=== PATIENT | male | born 1960 | race Asian ===

== ENCOUNTER 2020-03-02 19:43 | Emergency (ER) | payer OTHER ==
[~2020-03-02] VITALS: Ht 172.7 cm; Wt 85.3 kg
[2020-03-02 19:43] VITALS: BP 153/85; TEMP 98.9
[~2020-03-02 19:43] MED LIST: ACID CONTROL20 MG PO; ALBU0.0813 INH; DIVALPROEX500 MG PO; FEROSUL325 MG PO; FORTAMET1000 MG PO; KP FOLIC ACID1 MG PO; LACTSYP31 PO; LORA1TAB17 PO; MONT10TA PO; NEURONTIN 100M100 MG PO; OLAN10INJ IM; PROAIR HFA108 MCG/AC INH; RISP0.25 PO; SEROQUEL100 MG PO; SIMV20TA2 PO; TOPI100T PO
[2020-03-02 20:02] LABS: PLATELET COUNT 264 K/uL (142-355)
[2020-03-02 20:32] LABS: POTASSIUM 3.8 mmol/L (3.6-5.2)
[2020-03-03] MEDS ORDERED: DECUBI-VITE PO (01:05)
[2020-03-03] MEDS ORDERED: DEPO-PROVER400 MG/ML IM (01:32)
[2020-03-03] MEDS ORDERED: HALO50IN4 IM (02:09)
[2020-03-03] MEDS ORDERED: NULLO PO (04:52)
[2020-03-03] MEDS ORDERED: MELATONIN5 M2 PO (04:59)
[2020-03-03] MEDS ORDERED: PROVERA5 MG PO (05:03)
[2020-03-03] MEDS ORDERED: OLANZAPINE10 M2 PO (05:06)
[2020-03-03] MEDS ORDERED: PEPCID40 MG PO (05:09)
[2020-03-03] MEDS ORDERED: SEROQUEL300 MG PO (05:13)
[2020-03-03] MEDS ORDERED: B-1100 MG PO (05:17)
[2020-03-03] MEDS ORDERED: ASCO500T18 PO (05:20)
[2020-03-03] MEDS ORDERED: HALO5INJ3 IM (05:38)
[2020-03-03] MEDS ORDERED: GABA300C2 PO (05:56)
[2020-03-03] MEDS ORDERED: MED PO (05:59)
[2020-03-03] MEDS ORDERED: VITAMIN D PO (06:05)
[2020-03-03] MEDS ORDERED: ZINC220 MG PO (06:07)
[2020-03-03] MEDS ORDERED: ESCITALOPRAM20 MG PO (06:17)
== END 2020-03-02 21:31 | disposition other institution (70) ==
LOC: ED 19:43
PROVIDERS: Family Medicine
DX: U07.1 COVID-19 (principal); F03.91 Unspecified dementia, unspecified severity, with behavioral disturbance; Z04.6 Encounter for general psychiatric examination, requested by authority
CPT/HCPCS: 36415; 80053; 81000; 85027; 87635; 93005; 99283; U0003